=== PATIENT | male | born 1980 ===

== ENCOUNTER 2017-05-21 18:14 | Emergency (ER) | payer OTHER ==
[2017-05-21] MEDS ORDERED: Tetan/Diph/Pertus SYR(Tdap)* 0.5 ML SYR(BOOSTRIX) use SYR IM ONE (19:44)
[2017-05-21] MEDS ORDERED: Amoxicillin/Clavulanate TAB* 875 MG PO ONE (19:45)
--- NOTE | 2017-05-21 19:50 | ED ---
Upper Extremity Pain - HPI Summary HPI Summary: This 37-year-old man was bit by his own dog while playing this evening puncture wound on his left hand fifth finger at the MCP joint full range of motion minimal amount of pain she drinks flexion and extension all within normal limits - History of Current Complaint Chief Complaint: EDAnimalBite Stated Complaint: LT HAND INJURY Time Seen by Provider: 05/21/17 19:34 Hx Obtained From: Patient Mechanism Of Injury: Other - Dog bite Onset/Duration: Traumatic Timing: Constant Severity Initially: Mild Severity Currently: Mild Pain Location: Hand - Left fifth Aggravating Factor(s): Nothing Alleviating Factor(s): Nothing Related History: Dominant Hand Right - Allergies/Home Medications Allergies/Adverse Reactions: Allergies Allergy/AdvReac Type Severity Reaction Status Date / Time No Known Allergies Allergy Verified 08/08/12 18:09 PMH/Surg Hx/FS Hx/Imm Hx Previously Healthy: Yes Musculoskeletal History: Denies: Hx Rheumatoid Arthritis, Hx Osteoporosis Infectious Disease History: No Infectious Disease History: Denies: Traveled Outside the in Last 30 Days - Family History Known Family History: Positive: None - Social History Occupation: Employed Full-time Lives: With Family Alcohol Use: Occasionally Hx Substance Use: No Substance Use Type: Reports: None Hx Tobacco Use: No Smoking Status (MU): Never Smoked Tobacco Review of Systems Constitutional: Negative Eyes: Negative ENT: Negative Cardiovascular: Negative Respiratory: Negative Gastrointestinal: Negative Genitourinary: Negative Positive: Other - puncture wound on the palmar side of the left hand at the left fifth metacarpal phalangeal joint Neurological: Negative Psychological: Normal All Other Systems Reviewed And Are Negative: Yes Physical Exam Triage Information Reviewed: Yes Vital Signs On Initial Exam: Initial Vitals Temp Pulse Resp BP Pulse Ox 98.1 F 63 14 125/75 98 05/21/17 18:35 05/21/17 18:35 05/21/17 18:35 05/21/17 18:35 05/21/17 18:35 Vital Signs Reviewed: Yes Appearance: Positive: Well-Appearing, No Pain Distress, Well-Nourished Skin: Positive: Warm, Skin Color Reflects Adequate Perfusion Head/Face: Positive: Normal Head/Face Inspection Eyes: Positive: Normal, Conjunctiva Clear ENT: Positive: Normal ENT inspection, Hearing grossly normal. Negative: Nasal congestion, Tonsillar swelling, Tonsillar exudate, Trismus, Muffled voice, Hoarse voice Neck: Positive: Supple, Nontender Respiratory/Lung Sounds: Positive: Breath Sounds Present Cardiovascular: Positive: Normal, RRR, Pulses are Symmetrical in both Upper and Lower Extremities Musculoskeletal: Positive: Normal, Strength/ROM Intact Neurological: Positive: Normal, Sensory/Motor Intact, Alert, Oriented to Person Place, Time Psychiatric: Positive: Normal AVPU Assessment: Alert - Vidor Coma Scale Best Eye Response: 4 - Spontaneous Best Motor Response: 6 - Obeys Commands Best Verbal Response: 5 - Oriented Coma Scale Total: 15 Diagnostics - Vital Signs Vital Signs Temp Pulse Resp BP Pulse Ox 05/21/17 18:35 98.1 F 63 14 125/75 98 - Laboratory Lab Statement: Any lab studies that have been ordered have been reviewed, and results considered in the medical decision making process. - Radiology No standard instances Xray Interpretation: No Acute Changes Radiology Interpretation Completed By: ED Physician, Radiologist Re-Evaluation - Re-Evaluation First Eval Change: Improved - Steri-Strips and splint applied Course/Dx - Course Assessment/Plan: Keep wound clean and dry keep Steri-Strips and splint on the posterior should follow up in her own follow up with the orthopedic doctor Augmentin twice a day for 10 days tetanus is up-to-date denies need for pain medication - Diagnoses Provider Diagnoses: Dog bite of left hand without complication Discharge - Discharge Plan Condition: Stable Disposition: HOME Prescriptions: Amoxicillin/Clavulanate TAB* [Augmentin TAB 875*] 875 mg PO BID #19 tab Patient Education Materials: Animal Bite (ED), Splint Care (ED), Steristrips ( ED) Referrals: Kathy Owen MD [Medical Doctor] - 2 Days Additional Instructions: Keep dressing clean and dry keep splint on finger Follow with Dr. Owen in the next 2-3 days Follow sooner for signs and symptoms of infection pain redness swelling streaking fever decreased range of motion
--- NOTE | 2017-05-21 20:28 | RAD ---
Indication: Dog bite at the fifth metacarpal phalangeal joint. 3 views of left fifth demonstrates no fracture. Air is noted in the subcutaneous tissue surrounding the proximal phalanx from presumed dog bite. IMPRESSION: Soft tissue injury without fracture.
[2017-05-21] MEDS ORDERED: Benzoin Compound STICK ONE (20:42)
[2017-05-21 21:18] VITALS: BP 127/76
== END 2017-05-21 21:00 | disposition home or self-care (01) ==
LOC: ED 18:14
DX: S61.257A Open bite of left little finger without damage to nail, initial encounter (principal); W54.0XXA Bitten by dog, initial encounter; Y92.9 Unspecified place or not applicable; Z28.21 Immunization not carried out because of patient refusal
CPT/HCPCS: 73140; 90715; 99282; A9270-GY